=== PATIENT | female | born 1935 | race Caucasian/White ===

== ENCOUNTER 2024-06-29 13:23 | Inpatient (IN) | payer OTHER ==
[2024-06-29] MEDS ORDERED: CEFTRIAXONE 2 GM-D5W BAG 2 GM/50 ML BAG IVPB ONE (15:47)
[2024-06-29 15:57] LABS: BASO % 0.6 % (0-2.0); EOS % 2.4 % (0-4.5); HEMATOCRIT 39.5 % (32.4-45.2); HEMOGLOBIN 12.9 GM/dL (10.7-15.3); LYMPH % 13.3 % (8-40); MCH 29.8 pg (25.7-33.7); MCHC 32.7 g/dl (32.0-36.0); MEAN PLT VOLUME 7.4 fl (7.5-11.1); MONO % 7.6 % (3.8-10.2); NEUT % 76.1 % (42.8-82.8); PLATELET COUNT 270 10^3/uL (134-434); RBC 4.34 M/mm3 (3.60-5.2); WHITE BLOOD COUNT 7.2 K/mm3 (4.0-10.0)
[2024-06-29] MEDS: CEFTRIAXONE 2 GM-D5W BAG 2 GM/50 ML BAG IVPB ONE (16:04)
[2024-06-29 16:14] LABS: CHLORIDE 100 mmol/L (98-107); SODIUM 126 mmol/L (136-145)
[2024-06-29 16:17] LABS: ALBUMIN 3.7 g/dl (3.4-5.0); ANION GAP 3 mmol/L (4-13); BLOOD UREA NITROGEN 26.6 mg/dL (7-18); CO2 24 mmol/L (21-32); GLUCOSE,RANDOM 87 mg/dL (74-106); POTASSIUM 9.6 mmol/L (3.5-5.1)
[2024-06-29 16:21] LABS: BILIRUBIN,TOTAL 0.3 mg/dL (0.2-1)
[2024-06-29 16:22] LABS: TOT PROT 7.8 g/dl (6.4-8.2)
[2024-06-29 16:23] LABS: ALK PHOS 76 U/L (45-117)
[2024-06-29 16:28] LABS: SGOT/AST 113 U/L (15-37); SGPT/ALT 27 U/L (13-61)
[2024-06-29] MEDS ORDERED: ACETAMINOPHEN 325 MG TABLET (FP) ONE (17:07)
[2024-06-29] MEDS: ACETAMINOPHEN 325 MG TABLET (FP) PO ONE (17:10)
[2024-06-29 17:35] LABS: POTASSIUM 4.6 mmol/L (3.5-5.1)
[2024-06-29 17:37] LABS: CALCIUM 8.7 mg/dL (8.5-10.1)
[2024-06-29 17:38] LABS: ALBUMIN 3.8 g/dl (3.4-5.0); BLOOD UREA NITROGEN 24.8 mg/dL (7-18)
[2024-06-29 17:41] LABS: CREATININE 0.9 mg/dL (0.55-1.3)
[2024-06-29 17:42] LABS: TOT PROT 6.7 g/dl (6.4-8.2)
[2024-06-29 17:49] LABS: BILIRUBIN,TOTAL 0.3 mg/dL (0.2-1)
[2024-06-29] MEDS ORDERED: DOCUSATE SODIUM 100 MG CAPSULE (FP) PO PRN (21:13)
[2024-06-30] MEDS ORDERED: ACETAMINOPHEN 325 MG TABLET (FP) ONE (04:03)
[2024-06-30] MEDS: ACETAMINOPHEN 325 MG TABLET (FP) PO PRN (04:05)
[2024-06-30] MEDS ORDERED: ENALAPRIL MALEATE 5 MG TABLET ONE (04:33)
[2024-06-30] MEDS: ENALAPRIL MALEATE 10 MG TABLET PO ONE (04:37)
[2024-06-30] MEDS: EZETIMIBE 10 MG TABLET (FP) PO SCH (10:48)
[2024-06-30] MEDS: CEFTRIAXONE 2 GM-D5W BAG 2 GM/50 ML BAG IVPB SCH (10:50)
[2024-06-30 14:23] LABS: BASO % 1.3 % (0-2.0); EOS % 2.6 % (0-4.5); HEMOGLOBIN 11.8 GM/dL (10.7-15.3); LYMPH % 17.2 % (8-40); MCH 29.6 pg (25.7-33.7); MCHC 31.8 g/dl (32.0-36.0); MONO % 12.2 % (3.8-10.2); NEUT % 66.7 % (42.8-82.8); PLATELET COUNT 256 10^3/uL (134-434); RBC 3.97 M/mm3 (3.60-5.2); RDW 14.4 % (11.6-15.6)
[2024-06-30 14:41] LABS: POTASSIUM 4.8 mmol/L (3.5-5.1)
[2024-06-30 14:43] LABS: BLOOD UREA NITROGEN 21.9 mg/dL (7-18); MAGNESIUM 2.1 mg/dL (1.8-2.4)
[2024-06-30 14:46] LABS: CREATININE 0.8 mg/dL (0.55-1.3)
[2024-06-30 16:00] VITALS: BMI 28.6
[2024-06-30] MEDS: ROSUVASTATIN CA 5 MG TABLET PO SCH (22:11)
[2024-07-01 09:52] LABS: BASO % 1.1 % (0-2.0); EOS % 3.4 % (0-4.5); HEMATOCRIT 35.6 % (32.4-45.2); HEMOGLOBIN 12.2 GM/dL (10.7-15.3); LYMPH % 13.8 % (8-40); MCH 31.1 pg (25.7-33.7); MCHC 34.2 g/dl (32.0-36.0); MEAN CELL VOLUME 90.8 fl (80-96); MEAN PLT VOLUME 7.5 fl (7.5-11.1); NEUT % 68.7 % (42.8-82.8); PLATELET COUNT 232 10^3/uL (134-434); RBC 3.92 M/mm3 (3.60-5.2); RDW 14.4 % (11.6-15.6); WHITE BLOOD COUNT 5.1 K/mm3 (4.0-10.0)
[2024-07-01 10:00] LABS: POTASSIUM 4.7 mmol/L (3.5-5.1)
[2024-07-01 10:04] LABS: ALBUMIN 3.5 g/dl (3.4-5.0)
[2024-07-01 10:05] LABS: BLOOD UREA NITROGEN 23.4 mg/dL (7-18)
[2024-07-01 10:07] LABS: CREATININE 0.8 mg/dL (0.55-1.3)
[2024-07-01 10:08] LABS: BILIRUBIN,TOTAL 0.4 mg/dL (0.2-1)
[2024-07-01 10:09] LABS: TOT PROT 6.4 g/dl (6.4-8.2)
[2024-07-01] MEDS: amLODIPine BESYLATE 2.5 MG TABLET (FP) PO SCH (10:12)
[2024-07-01] MEDS: ENALAPRIL MALEATE 10 MG TABLET PO SCH (10:12)
[2024-07-01] MEDS: metoPROLOL SUCCINATE 25 MG TAB.SR.24H (FP) PO SCH (10:13)
[2024-07-01] MEDS: ENOXAPARIN NA (PORCINE) 60 MG/0.6 ML DISP.SYRIN SQ SCH (11:26)
[2024-07-01] MEDS: HEPARIN NA (PORCINE) 5,000 UNITS/ML 1ML VIAL SQ SCH (11:29)
[2024-07-02] MEDS: APIXABAN 5 MG TABLET PO SCH (10:28)
[2024-07-02] MEDS: ASPIRIN 81 MG CHEWABLE TABLETS PO SCH (10:28)
[2024-07-02 13:54] VITALS: BP 157/56; PULSE 61; RESP 18; TEMP 98
== END 2024-07-02 15:36 | disposition home or self-care (01) | DRG 603 ==
LOC: JER 13:23 → JERBED 17:18 → J8W 06-30 06:26 → OBSVTOIN 06-30 10:25 → J8W 06-30 14:57
PROVIDERS: ADMIT Internal Medicine; ATTEND Family Medicine
DX: L03.031 Cellulitis of right toe (principal); L97.518 Non-pressure chronic ulcer of other part of right foot with other specified severity; I10 Essential (primary) hypertension; I25.10 Atherosclerotic heart disease of native coronary artery without angina pectoris; E78.5 Hyperlipidemia, unspecified; B35.1 Tinea unguium; I73.9 Peripheral vascular disease, unspecified; I48.0 Paroxysmal atrial fibrillation; R73.03 Prediabetes; Z95.5 Presence of coronary angioplasty implant and graft
CPT/HCPCS: 36415; 73630-TC-RT-FY; 73718-TC-RT; 80048; 80053; 80061; 82962; 83036; 83735; 84100; 85025; 85651; 86140; 87040; 93005; 93010; 93306-TC; 93922; 93925-TC; 99285-25; G0378

== ENCOUNTER 2024-08-13 05:13 | Inpatient (IN) | payer OTHER ==
[2024-08-12 17:17] VITALS: BMI 26.5
[2024-08-13] MEDS ORDERED: HEPARIN NA (PORCINE) 5,000 UNITS/ML 1ML VIAL ONE ×2 (09:41→11:09)
[2024-08-13] MEDS ORDERED: LIDOCAINE HCL 1%, 10 MG/ML (20ML VIAL) ONE (09:41)
[2024-08-13 10:08] LABS: BASO % 1.4 % (0-2.0); EOS % 6.2 % (0-4.5); HEMATOCRIT 36.7 % (32.4-45.2); HEMOGLOBIN 12.2 GM/dL (10.7-15.3); LYMPH % 12.4 % (8-40); MCH 30.5 pg (25.7-33.7); MCHC 33.1 g/dl (32.0-36.0); MEAN PLT VOLUME 7.8 fl (7.5-11.1); MONO % 12.4 % (3.8-10.2); NEUT % 67.6 % (42.8-82.8); PLATELET COUNT 304 10^3/uL (134-434); RBC 3.99 M/mm3 (3.60-5.2); RDW 15.1 % (11.6-15.6); WHITE BLOOD COUNT 5.7 K/mm3 (4.0-10.0)
[2024-08-13 10:14] LABS: INR 1.11 (0.83-1.09); PROTHROMBIN TIME (PATIENT) 12.1 SEC (9.7-13.0)
[2024-08-13 10:37] LABS: POTASSIUM 4.5 mmol/L (3.5-5.1)
[2024-08-13 10:39] LABS: ALBUMIN 4.1 g/dl (3.4-5.0); CALCIUM 9.8 mg/dL (8.5-10.1)
[2024-08-13 10:40] LABS: BLOOD UREA NITROGEN 38.5 mg/dL (7-18)
[2024-08-13 10:43] LABS: CREATININE 0.7 mg/dL (0.55-1.3)
[2024-08-13 10:44] LABS: BILIRUBIN,TOTAL 0.5 mg/dL (0.2-1); TOT PROT 7.4 g/dl (6.4-8.2)
[2024-08-13] MEDS ORDERED: NITROGLYCERIN 50 MG/10 ML VIAL IVPB ONE (11:09)
[2024-08-13] MEDS ORDERED: PROPOFOL 20 ML ONE ×2 (11:18→11:49)
[2024-08-13] MEDS ORDERED: MIDAZOLAM HCL 2 MG/2 ML SINGLE DOSE VIAL ONE (11:18)
[2024-08-13] MEDS: ceFAZolin SODIUM 1 GM VIAL IVPB ONE (11:25)
[2024-08-13] MEDS: LIDOCAINE HCL 1%, 10 MG/ML (20ML VIAL) INF ONE (11:44)
[2024-08-13] MEDS: HEPARIN NA (PORCINE) 5,000 UNITS/ML 1ML VIAL SQ ONE (11:50)
[2024-08-13] MEDS ORDERED: PROTAMINE SULFATE 50 MG/5 ML VIAL ONE (12:32)
[2024-08-13] MEDS ORDERED: ONDANSETRON 4 MG/2 ML VIAL IVPUSH PRN (13:17)
[2024-08-13] MEDS: LACTATED RINGERS SOLUTION 1,000 ML IV SCH (14:15)
[2024-08-13] MEDS ORDERED: hydrALAZINE HCL 20 MG/ML VIAL ONE (14:25)
[2024-08-13] MEDS: hydrALAZINE HCL 20 MG/ML VIAL IVPUSH PRN (14:29)
[2024-08-13] MEDS: traMADol HCL 50 MG TABLET PO PRN (17:46)
[2024-08-13] MEDS: PIPERACILLIN/TAZOB 3.375 GM 50 ML IVPB SCH (17:59)
[2024-08-13] MEDS: ACETAMINOPHEN 500 MG TABLET (FP) PO PRN (19:46)
[2024-08-13] MEDS: diphenhydrAMINE HCL 25 MG CAPSULE (FP) PO ONE (21:00)
[2024-08-13] MEDS: ENALAPRIL MALEATE 10 MG TABLET PO SCH (23:00)
[2024-08-13] MEDS: metoPROLOL SUCCINATE 25 MG TAB.SR.24H (FP) PO SCH (23:00)
[2024-08-13] MEDS: ROSUVASTATIN CA 5 MG TABLET PO SCH (23:00)
[2024-08-13] MEDS: EZETIMIBE 10 MG TABLET (FP) PO SCH (23:00)
[2024-08-14] MEDS: ACETAMINOPHEN 1000 MG/100 ML BAG IVPB ONE (05:09)
[2024-08-14 08:55] LABS: BASO % 0.8 % (0-2.0); EOS % 2.7 % (0-4.5); HEMATOCRIT 35.1 % (32.4-45.2); HEMOGLOBIN 11.6 GM/dL (10.7-15.3); LYMPH % 8.7 % (8-40); MCH 30.5 pg (25.7-33.7); MEAN CELL VOLUME 92.3 fl (80-96); MEAN PLT VOLUME 7.9 fl (7.5-11.1); MONO % 11.5 % (3.8-10.2); NEUT % 76.3 % (42.8-82.8); PLATELET COUNT 242 10^3/uL (134-434); RDW 15.1 % (11.6-15.6); WHITE BLOOD COUNT 7.1 K/mm3 (4.0-10.0)
[2024-08-14 08:58] LABS: BLOOD UREA NITROGEN 24.9 mg/dL (7-18); CALCIUM 8.6 mg/dL (8.5-10.1)
[2024-08-14 08:59] LABS: MAGNESIUM 1.8 mg/dL (1.8-2.4)
[2024-08-14 09:00] LABS: ALBUMIN 3.5 g/dl (3.4-5.0)
[2024-08-14 09:03] LABS: CREATININE 0.7 mg/dL (0.55-1.3); PHOSPHOROUS 4.6 mg/dL (2.5-4.9)
[2024-08-14 09:04] LABS: BILIRUBIN,TOTAL 0.6 mg/dL (0.2-1); TOT PROT 6.4 g/dl (6.4-8.2)
[2024-08-14] MEDS: ENOXAPARIN NA (PORCINE) 60 MG/0.6 ML DISP.SYRIN SQ SCH (09:38)
[2024-08-14] MEDS ORDERED: oxyCODONE HCL 5 MG TABLET PO PRN (14:33)
[2024-08-14] MEDS: ACETAMINOPHEN 1000 MG/100 ML BAG IVPB PRN (16:53)
[2024-08-15] MEDS: metoPROLOL SUCCINATE 25 MG TAB.SR.24H (FP) PO ONE (01:35)
[2024-08-15 09:34] LABS: BASO % 0.8 % (0-2.0); EOS % 2.6 % (0-4.5); HEMOGLOBIN 12.4 GM/dL (10.7-15.3); LYMPH % 7.7 % (8-40); MCH 30.3 pg (25.7-33.7); MCHC 32.5 g/dl (32.0-36.0); MEAN CELL VOLUME 93.3 fl (80-96); MEAN PLT VOLUME 7.8 fl (7.5-11.1); MONO % 7.6 % (3.8-10.2); NEUT % 81.3 % (42.8-82.8); PLATELET COUNT 271 10^3/uL (134-434); RBC 4.08 M/mm3 (3.60-5.2); RDW 15.2 % (11.6-15.6); WHITE BLOOD COUNT 7.1 K/mm3 (4.0-10.0)
[2024-08-15 09:52] LABS: POTASSIUM 4.4 mmol/L (3.5-5.1)
[2024-08-15 09:54] LABS: CALCIUM 9.3 mg/dL (8.5-10.1)
[2024-08-15 09:55] LABS: ALBUMIN 3.9 g/dl (3.4-5.0); BLOOD UREA NITROGEN 14.2 mg/dL (7-18)
[2024-08-15 09:58] LABS: CREATININE 0.6 mg/dL (0.55-1.3)
[2024-08-15 10:00] LABS: BILIRUBIN,TOTAL 0.6 mg/dL (0.2-1)
[2024-08-15] MEDS: traMADol HCL 50 MG TABLET PO PRN (11:03)
[2024-08-15] MEDS: amLODIPine BESYLATE 5 MG TABLET (FP) PO SCH (13:58)
[2024-08-15] MEDS: ONDANSETRON 4 MG/2 ML VIAL IVPUSH PRN (15:46)
[2024-08-15] MEDS: ACETAMINOPHEN 1000 MG/100 ML BAG IVPB PRN (15:46)
[2024-08-15] MEDS: PANTOPRAZOLE 40 MG TABLET PO SCH (17:46)
[2024-08-15] MEDS: SENNOSIDES/DOCUSATE COMBO (SENNA PLUS) TABLET (UD) PO SCH (22:42)
[2024-08-15] MEDS: BISACODYL 10 MG SUPP.RECT PR ONE (22:42)
[2024-08-16 09:00] LABS: BASO % 0.4 % (0-2.0); HEMATOCRIT 35.7 % (32.4-45.2); LYMPH % 4.9 % (8-40); MCH 30.5 pg (25.7-33.7); MCHC 33.5 g/dl (32.0-36.0); MEAN PLT VOLUME 8.1 fl (7.5-11.1); MONO % 8.1 % (3.8-10.2); NEUT % 85.6 % (42.8-82.8); PLATELET COUNT 248 10^3/uL (134-434); RBC 3.93 M/mm3 (3.60-5.2); RDW 14.7 % (11.6-15.6)
[2024-08-16 10:39] LABS: POTASSIUM 3.6 mmol/L (3.5-5.1)
[2024-08-16 10:41] LABS: CALCIUM 8.4 mg/dL (8.5-10.1)
[2024-08-16 10:42] LABS: ALBUMIN 3.3 g/dl (3.4-5.0); BLOOD UREA NITROGEN 13.9 mg/dL (7-18)
[2024-08-16 10:45] LABS: CREATININE 0.6 mg/dL (0.55-1.3)
[2024-08-16 10:46] LABS: BILIRUBIN,TOTAL 0.6 mg/dL (0.2-1); TOT PROT 6.3 g/dl (6.4-8.2)
[2024-08-16] MEDS: fentaNYL 12mcg/hr PATCH.TD72 TD SCH (12:58)
[2024-08-16] MEDS: morphine SULFATE 4 MG/ML VIAL IVPUSH PRN (17:16)
[2024-08-16] MEDS: COLLAGENASE CLOSTRIDIUM HIST. 30 GRAMS TUBE TP SCH (18:59)
[2024-08-16] MEDS: SODIUM CHLORIDE 1 GM TABLET PO SCH (21:48)
[2024-08-16] MEDS: SENNOSIDES 8.6MG TABLET (FP) PO SCH (21:48)
[2024-08-16] MEDS ORDERED: COLLAGENASE CLOSTRIDIUM HIST. 30 GRAMS TUBE TP SCH (22:00)
[2024-08-16] MEDS ORDERED: SODIUM BICARBONATE 650 MG TABLET PO SCH (22:00)
[2024-08-17] MEDS: ONDANSETRON *ODT* 4 MG TABLET SL PRN (07:35)
[2024-08-17 08:39] LABS: HEMATOCRIT 35.6 % (32.4-45.2); HEMOGLOBIN 11.7 GM/dL (10.7-15.3); MEAN PLT VOLUME 7.9 fl (7.5-11.1); PLATELET COUNT 259 10^3/uL (134-434); RBC 3.91 M/mm3 (3.60-5.2); RDW 14.5 % (11.6-15.6); WHITE BLOOD COUNT 7.7 K/mm3 (4.0-10.0)
[2024-08-17 09:02] LABS: POTASSIUM 3.4 mmol/L (3.5-5.1)
[2024-08-17 09:08] LABS: BLOOD UREA NITROGEN 13.5 mg/dL (7-18); CALCIUM 8.4 mg/dL (8.5-10.1); MAGNESIUM 1.7 mg/dL (1.8-2.4)
[2024-08-17 09:11] LABS: CREATININE 0.6 mg/dL (0.55-1.3); PHOSPHOROUS 2.8 mg/dL (2.5-4.9)
[2024-08-17] MEDS: POTASSIUM CHLORIDE ORAL LIQUID 20 MEQ/15 ML PO SCH (10:52)
[2024-08-17] MEDS: MAGNESIUM SULF 50% (8.12 MEQ/2 ML-1 GM VIAL) IVPB ONE (10:53)
[2024-08-17] MEDS: CEFTRIAXONE 2 GM-D5W BAG 2 GM/50 ML BAG IVPB SCH (11:52)
[2024-08-17] MEDS: AMINO ACIDS/PROTEIN HYDROLYS 30 ML LIQUID.PKT PO SCH (17:30)
[2024-08-17] MEDS: D5-NS + 20 MEQ KCL - 20 MEQ/1,000 ML INFUS.BAG IV SCH (18:21)
[2024-08-18 09:49] LABS: POTASSIUM 3.9 mmol/L (3.5-5.1)
[2024-08-18 09:51] LABS: BLOOD UREA NITROGEN 11.3 mg/dL (7-18); CALCIUM 8.7 mg/dL (8.5-10.1); MAGNESIUM 1.9 mg/dL (1.8-2.4)
[2024-08-18 09:55] LABS: CREATININE 0.6 mg/dL (0.55-1.3)
[2024-08-18] MEDS: DULoxetine HCL 20 MG CAPSULE.DR PO SCH (13:03)
[2024-08-18] MEDS: morphine SULFATE 4 MG/ML VIAL IVPUSH ONE (14:50)
[2024-08-19] MEDS: amLODIPine BESYLATE 10 MG TABLET (FP) PO SCH (09:19)
[2024-08-19] MEDS: COLLAGENASE CLOSTRIDIUM HIST. 30 GRAMS TUBE TP SCH (11:06)
[2024-08-19] MEDS ORDERED: FENTANYL PATCH WASTE TD PRN (11:57)
[2024-08-19] MEDS: morphine SULFATE 10 MG/5 ML UNIT-DOSE CUP PO PRN (12:19)
[2024-08-19] MEDS: FENTANYL PATCH WASTE TD PRN (13:20)
[2024-08-19] MEDS: fentaNYL 25mcg/hr PATCH.TD72 TD SCH (13:20)
[2024-08-20 10:33] VITALS: BP 124/57; PULSE 71; RESP 16; TEMP 97.9
== END 2024-08-20 12:14 | disposition home or self-care (01) | DRG 253 ==
LOC: JASU-SURG 05:13 → J2C 13:08 → J8W 16:46
PROVIDERS: ADMIT Internal Medicine; ATTEND Internal Medicine
PROC: 0QBQ3ZX Excision of Right Toe Phalanx, Percutaneous Approach, Diagnostic (ICD-10-PCS; 2024-08-13)
PROC: B40FYZZ Plain Radiography of Right Lower Extremity Arteries using Other Contrast (ICD-10-PCS; 2024-08-13)
PROC: 047Y3ZZ Dilation of Lower Artery, Percutaneous Approach (ICD-10-PCS; principal; 2024-08-13 11:30)
PROC: 0QBQ3ZX Excision of Right Toe Phalanx, Percutaneous Approach, Diagnostic (ICD-10-PCS; 2024-08-13 11:30)
DX: I70.261 Atherosclerosis of native arteries of extremities with gangrene, right leg (principal); E87.1 Hypo-osmolality and hyponatremia; L03.115 Cellulitis of right lower limb; M86.8X7 Other osteomyelitis, ankle and foot; L97.518 Non-pressure chronic ulcer of other part of right foot with other specified severity; I70.298 Other atherosclerosis of native arteries of extremities, other extremity; I10 Essential (primary) hypertension; B96.89 Other specified bacterial agents as the cause of diseases classified elsewhere; I48.91 Unspecified atrial fibrillation; R73.03 Prediabetes
CPT/HCPCS: 36415; 73630-TC-RT-FY; 76000-TC-FY; 80048; 80053; 82436; 82533; 82962; 83735; 83930; 83935; 84100; 84133; 84300; 84443; 85025; 85027; 85610; 85651; 86140; 87070; 87075; 87186; 93005; 93010; 94760; C1760; C1769; G0463-25; J0131; J1644; Q0162